=== PATIENT | male | born 1950 | race Caucasian/White ===

== ENCOUNTER 2024-08-07 13:17 | Inpatient (IN) ==
[2024-08-07] MEDS ORDERED: KETAMINE HCL ONE ×2 (13:23)
[2024-08-07] MEDS ORDERED: XYLOCAINE 2 % (PLAIN) ONE (13:23)
[2024-08-07] MEDS ORDERED: PRECEDEX INJ VIAL ONE ×2 (13:23)
[2024-08-07] MEDS ORDERED: ULTANE GAS IN ONE (13:23)
[2024-08-07 15:15] LABS: BASOPHILS # (AUTO) 0.1 X10^3/uL (0.0-0.1); BASOPHILS % (AUTO) 1.7 % (0.2-1.0); EOSINOPHILS # (AUTO) 0.1 x10^3/uL (0.0-0.2); EOSINOPHILS % (AUTO) 2.1 % (0.9-2.9); ERYTHROCYTE SEDIMENTATION RATE 93 MM/HOUR (0-15); HEMATOCRIT 37.9 % (42.0-54.0); HEMOGLOBIN 12.9 g/dL (13.5-18.0); LYMPHOCYTES # (AUTO) 2.1 X10^3/uL (1.3-2.9); LYMPHOCYTES % (AUTO) 33.2 % (21.0-51.0); MEAN CORPUSCULAR HEMOGLOBIN 29.9 pg (27.0-34.0); MEAN CORPUSCULAR HGB CONC 34.2 g/dL (33.0-35.0); MEAN CORPUSCULAR VOLUME 87.6 fL (80.0-100.0); MEAN PLATELET VOLUME 7.5 fL (7.4-11.0); MONOCYTES # (AUTO) 0.4 x10^3/uL (0.3-0.8); MONOCYTES % (AUTO) 6.2 % (0.0-13.0); NEUTROPHILS # (AUTO) 3.6 x10^3/uL (2.2-4.8); NEUTROPHILS % (AUTO) 56.8 % (42.0-75.0); PLATELET COUNT 366 X10^3/uL (150.0-450.0); RED BLOOD COUNT 4.33 X10^6/uL (4.7-6.0); RED CELL DISTRIBUTION WIDTH 14.8 % (11.6-16.5); WHITE BLOOD COUNT 6.4 X10^3/uL (3.6-10.0)
[2024-08-07 15:26] LABS: ALANINE AMINOTRANSFERASE 21 Units/L (12-78); ALBUMIN 3.1 g/dL (3.4-5.0); ALKALINE PHOSPHATASE 146 Units/L (46-116); ASPARTATE AMINO TRANSFERASE 10 Units/L (15-37); BLOOD UREA NITROGEN 13 mg/dL (7-18); CALCIUM 9.2 mg/dL (8.5-10.1); CARBON DIOXIDE 27.8 mmol/L (21-32); CHLORIDE 102 mmol/L (98-107); COR CA(FOR HYPOALB) 9.9 mg/dL (8.5-10.1); CREATININE 1.11 mg/dL (0.70-1.30); GLUCOSE 109 mg/dL (65-99); POTASSIUM 4.4 mmol/L (3.5-5.1); SODIUM 136 mmol/L (136-145); TOTAL PROTEIN 8.4 g/dL (6.4-8.2); eGFR NON BLACK RACES > 60 (>60)
[2024-08-07] MEDS: ULTRAM PO PRN (15:33)
[2024-08-07] MEDS: NEURONTIN CAP 300 MG PO SCH (15:33)
[2024-08-07] MEDS ORDERED: OMNIPAQUE 350 mg/mL 100 mL BTL 100 ML ONE (15:50)
[2024-08-07] MEDS ORDERED: NS 500 ML IV 500 ML IV ONE (15:50)
[2024-08-07] MEDS ORDERED: OMNIPAQUE 350 mg/mL 50 mL BTL 50 ML ONE (15:50)
[2024-08-07] MEDS: LR 1,000 ML IV 1,000 ML IV SCH (16:36)
[2024-08-07 17:44] VITALS: BMI 29.9
--- NOTE | 2024-08-07 19:35 | DR.CONSULT ---
CONSULT Consultation for Day of: Date: 08/07/24 Chief Complaint Chief Complaint: Infected hardware/osteomyelitis of the right foot. Patient has evidence of vascular compromise of arterial structures of the right leg as well. Dr. Matilda granados podiatry is planning removal of infected hardware and placement of a external fixator. Patient will need vascular repeat construction prior to this. Primarily focusing on the occlusion of the posterior tibial artery of the right foot. Patient with history of hypertension and diabetes and gastroesophageal reflux. Allergies Allergies Allergy/AdvReac Type Severity Reaction Status Date / Time No Known Allergies Allergy Verified 08/07/24 14:12 History of Present Illness History of Present Illness: see above Past Medical History Past Medical History: Diabetes, GERD and Hypertension Past Surgical History Surgical History: Other Family History Family Medical History: Diabetes Mellitus and Hypertension Social History Does patient currently use any type of tobacco product: No Alcohol Use: None Drug Use: None Medications Home Medications: No Known Allergies Allergy (Verified 08/07/24 14:12) CONTINUE taking the following medications gabapentin 300 mg capsule 300 mg PO TID 08/07/24 [History] lisinopril 10 mg tablet 10 mg PO QDAY 08/07/24 [History] meloxicam 7.5 mg tablet 7.5 mg PO QDAY arthritis 08/07/24 [History] metformin 500 mg tablet 500 mg PO BID diabetes mellitus 08/07/24 [History] metronidazole 500 mg tablet 500 mg PO Q8H 08/07/24 [History] omeprazole 40 mg capsule,delayed release 40 mg PO QDAY PRN 08/07/24 [History] tamsulosin 0.4 mg capsule 0.4 mg PO QPM 08/07/24 [History] tramadol 50 mg tablet 50 mg PO QID PRN pain 08/07/24 [History] Review of Systems Constitutional: See HPI Eyes: No Symptoms Reported ENT: No Symptoms Reported Respiratory: No Symptoms Reported Cardiovascular: No Symptoms Reported Gastrointestinal: No Symptoms Reported Genitourinary: No Symptoms Reported Musculoskeletal: See HPI Skin: No Symptoms Reported Neurological: No Symptoms Reported Physical Exam Vital Signs: Vital Signs Temperature 97.3 F Temperature 98.1 F Pulse Rate [Right Brachial] 67 Pulse Rate [Right Brachial] 69 Respiratory Rate 18 Respiratory Rate 16 Respiratory Rate 20 Respiratory Rate 16 Blood Pressure [Right Arm] 134/60 Blood Pressure [Right Arm] 137/65 O2 Sat by Pulse Oximetry 96 O2 Sat by Pulse Oximetry 98 Oriented: Normal, Time, Person and Place Eyes: Normal Ear: Normal Nose: Normal Throat: Normal Respiratory: Clear Throughout Cardiovascular: Normal and Other (Palpable femoral pulses bilaterally. I cannot palpate distal ankle pulses either foot) : Normal Auscultation: Bowel Sounds: Normal Palpation: Normal Tenderness: Normal Skin: Normal Musculoskeletal: Right (Right foot with infected hardware, see above) Psychiatric: Normal Affect: Anxious Speech Pattern: Clear and Appropriate Plan (1) Atherosclerosis of [place] arteries of extremities with rest pain, right leg: Status: Acute Plan: Will plan on table arteriogram and possible arterial intervention mainly involving the posterior tibial artery as referenced by the CT angiogram done preoperatively. Risk and benefits discussed with the patient and he agrees to proceed. There is a small risk of limb loss he understands this and agrees to proceed. After this is performed the next day Dr. Moreno will plan removal of the infected hardware and placement of external fixator. (2) Osteomyelitis of right foot: Status: Acute Plan: as above (3) Type 2 diabetes mellitus without complications: Status: Acute (4) Gastro-esophageal reflux disease without esophagitis: Status: Acute (5) Essential (primary) hypertension: Status: Acute
--- NOTE | 2024-08-07 19:58 | CT ---
EXAM: CTA AORTA WITH RUNOFF HISTORY: leg pain, Osteomylitis; COMPARISON: None. TECHNIQUE: Axial CT images of the abdomen, pelvis and lower extremities were obtained prior to and after the administration of 150 mL Omnipaque IV contrast during the arterial phase. Images were reformatted with a 3D angiographic technique for further evaluation. Radiation dose: 1369.30 mGy-cm total DLP FINDINGS: Aorta: No aneurysm. No clinically significant stenosis or occlusion. Mesenteric arteries/Celiac trunk: No clinically significant stenosis, occlusion or aneurysm. Renal arteries: No clinically significant stenosis, occlusion or aneurysm. Right iliac arteries: No clinically significant stenosis, occlusion or aneurysm. Left iliac arteries: No clinically significant stenosis, occlusion or aneurysm. Right femoral arteries/popliteal artery: No clinically significant stenosis, occlusion or aneurysm. Left femoral arteries/popliteal artery: Delayed contrast density in the left superficial femoral artery with no contrast visualized in the popliteal artery. Normal contrast flow is present within the left lower extremity arterial structures on the delayed imaging sequence. No obstruction or clinically significant stenosis identified which would result in the diminished contrast within the left lower extremity arterial structures. Normal bilateral lower extremity runoffs. Lung bases are clear. Stomach and proximal small bowel appear normal. Solid visceral organs of the upper abdomen are unremarkable. Gallbladder appears normal. No biliary dilatation. Homogeneous enhancement of the kidneys without hydronephrosis or hydroureter. No urinary calculus identified. Urinary bladder is unremarkable. Unremarkable appearance of the small and large bowel. No evidence of acute appendicitis. Nonspecific enlargement of the prostate gland. No pneumoperitoneum. No free intra-abdominal fluid. No adenopathy. Diffuse soft tissue edema in the right lower extremity below the knee. Right knee prosthesis in place. Intramedullary day in the distal aspect of the tibia extending into the talus and calcaneus. Chronic appearing comminuted fracture in the distal tibia. IMPRESSION: 1. No acute intra-abdominal abnormality identified. 2. Delayed contrast density in the left superficial femoral artery with no contrast visualized in the popliteal artery. Normal contrast flow is present within the left lower extremity arterial structures on the delayed imaging sequence. No obstruction or clinically significant stenosis identified which would result in the diminished contrast within the left lower extremity arterial structures. 3. Normal bilateral lower extremity runoffs. 4. No acute osseous abnormality identified. Chronic appearing comminuted fracture in the distal tibia. THIS IS AN ELECTRONICALLY VERIFIED FINAL REPORT 08/07/2024 7:55 PM - Electronically signed by Samir Jaime MD
[2024-08-07] MEDS: FLOMAX PO SCH (21:31)
[2024-08-07] MEDS: GLUCOPHAGE XR 24-HR PO SCH (21:31)
[2024-08-07] MEDS ORDERED: STERILE WATER IRRIGATION IR ONE (21:59)
[2024-08-08 05:57] LABS: BASOPHILS % (AUTO) 0.9 % (0.2-1.0); EOSINOPHILS # (AUTO) 0.1 x10^3/uL (0.0-0.2); EOSINOPHILS % (AUTO) 2.6 % (0.9-2.9); HEMATOCRIT 35.9 % (42.0-54.0); HEMOGLOBIN 12.2 g/dL (13.5-18.0); LYMPHOCYTES % (AUTO) 36.8 % (21.0-51.0); MEAN CORPUSCULAR HEMOGLOBIN 29.6 pg (27.0-34.0); MEAN CORPUSCULAR HGB CONC 34.1 g/dL (33.0-35.0); MEAN CORPUSCULAR VOLUME 86.7 fL (80.0-100.0); MEAN PLATELET VOLUME 7.6 fL (7.4-11.0); MONOCYTES # (AUTO) 0.6 x10^3/uL (0.3-0.8); MONOCYTES % (AUTO) 10.6 % (0.0-13.0); NEUTROPHILS # (AUTO) 2.6 x10^3/uL (2.2-4.8); NEUTROPHILS % (AUTO) 49.1 % (42.0-75.0); PLATELET COUNT 326 X10^3/uL (150.0-450.0); RED BLOOD COUNT 4.14 X10^6/uL (4.7-6.0); RED CELL DISTRIBUTION WIDTH 14.7 % (11.6-16.5); WHITE BLOOD COUNT 5.3 X10^3/uL (3.6-10.0)
[2024-08-08] MEDS: NOZIN NASAL SANITIZER TP ONE (06:07)
[2024-08-08 06:08] LABS: ALANINE AMINOTRANSFERASE 19 Units/L (12-78); ALBUMIN 2.7 g/dL (3.4-5.0); ALKALINE PHOSPHATASE 129 Units/L (46-116); ASPARTATE AMINO TRANSFERASE 9 Units/L (15-37); BLOOD UREA NITROGEN 14 mg/dL (7-18); CALCIUM 8.9 mg/dL (8.5-10.1); CHLORIDE 103 mmol/L (98-107); COR CA(FOR HYPOALB) 9.9 mg/dL (8.5-10.1); CREATININE 0.98 mg/dL (0.70-1.30); GLUCOSE 97 mg/dL (65-99); POTASSIUM 4.3 mmol/L (3.5-5.1); SODIUM 136 mmol/L (136-145); TOTAL PROTEIN 7.6 g/dL (6.4-8.2); eGFR NON BLACK RACES > 60 (>60)
[2024-08-08] MEDS: ZESTRIL TAB 10 MG PO SCH (08:28)
[2024-08-08] MEDS: PriLOSEC PO SCH (08:28)
[2024-08-08] MEDS: LR 1,000 ML IV 1,000 ML IV ONE (09:27)
--- NOTE | 2024-08-08 09:30 | EKG ---
Test Reason : pre-op Blood Pressure : */* mmHG Vent. Rate : 59 BPM Atrial Rate : 59 BPM P-R Int : 180 ms QRS Dur : 108 ms QT Int : 462 ms P-R-T Axes : 58 10 19 degrees QTc Int : 457 ms Sinus bradycardia Otherwise normal ECG No previous ECGs available Confirmed by Charlie Cody MD ([id number]) on 08/08/2024 11:17:53 AM Referred By: Confirmed By: Charlie Cody MD
[2024-08-08] MEDS: NS 100 ML IV 100 ML ONE (09:39)
[2024-08-08] MEDS: ANCEF VIAL 1 GRAM ONE (09:39)
[2024-08-08] MEDS: ZOFRAN INJ 4 MG VIAL ONE (09:45)
[2024-08-08] MEDS: FENTANYL VIAL INJ 100 mcg ONE (09:45)
[2024-08-08] MEDS: DECADRON INJ ONE (09:45)
[2024-08-08] MEDS: DIPRIVAN VIAL 20 ML ONE ×3 (09:45→10:54)
[2024-08-08] MEDS: PEPCID 20 MG VIAL ONE (09:45)
[2024-08-08] MEDS: OFIRMEV IV 1000 MG VIAL 1,000 MG/100 ML VIAL IV ONE (09:45)
[2024-08-08] MEDS: VERSED ONE (09:45)
[2024-08-08] MEDS: HEPARIN 1,000 UNIT/500 ML-NS 3,000 UNIT/1,500 ML IV.SOLN ONE (10:09)
[2024-08-08] MEDS: VISIPAQUE 100 ML ONE (10:09)
[2024-08-08] MEDS: MARCAINE 0.5% ONE (10:09)
[2024-08-08] MEDS: VISIPAQUE 50 ML ONE (10:09)
[2024-08-08] MEDS: HEPARIN SODIUM INJ 5000 UNITS ONE ×2 (10:10→11:07)
[2024-08-08] MEDS: NEO-SYNEPHRINE INJ ONE (10:18)
[2024-08-08] MEDS: EPHEDRINE SULFATE INJ ONE (10:18)
--- NOTE | 2024-08-08 11:29 | OR.IMMED ---
IMMEDIATE POST-OP NOTE Immediate Post-Op Note Date of surgery/procedure: 08/08/24 Pre-Op Diagnosis: Critical ischemia right leg, severe stenosis posterior tibial artery on right Post-Op Diagnosis: Same Procedure: Aortogram, arteriogram right leg, angioplasty of the posterior tibial artery at the ankle Description of Procedure: See dictation Surgeon/Letterer: Antoine Marcial MD, FACS Findings: Severe disease of the posterior tibial artery where it makes the curve going around the malleolus of the ankle Estimated Blood Loss: 100 cc Complications: None Progress Notes: to floor, for removal hardware right ankle and placement external fixator tomorrow .
--- NOTE | 2024-08-08 15:01 | DR.CONSULT ---
CONSULT Consultation for Day of: Date: 08/08/24 Chief Complaint Chief Complaint: Infection and Deformity, Right ankle Allergies Allergies Allergy/AdvReac Type Severity Reaction Status Date / Time No Known Allergies Allergy Verified 08/07/24 14:12 History of Present Illness History of Present Illness: This is a 74 year old M who is Diabetic and previously sustained a right ankle fracture. He underwent external fixator application then subsequent fixation using IMN. He developed an infection to this area. This was done some time ago. He was referred to Dr. Grey's office recently with redness and erythema surrounding the anterior ankle on medial side. Patient was instructed to head to the ER and be admitted by Dr. Marcial for infection to the right leg. Aggie was consulted. He took him today and performed an angioplasty of the posterior tibial artery on the right side. He currently denies any nausea, vomiting, fevers, chills, sob. Past Medical History Past Medical History: Diabetes, GERD and Hypertension Past Surgical History Surgical History: Other Family History Family Medical History: Diabetes Mellitus and Hypertension Social History Does patient currently use any type of tobacco product: No Alcohol Use: None Drug Use: None Medications Home Medications: No Known Allergies Allergy (Verified 08/07/24 14:12) CONTINUE taking the following medications gabapentin 300 mg capsule 300 mg PO TID 08/07/24 [History] lisinopril 10 mg tablet 10 mg PO QDAY 08/07/24 [History] meloxicam 7.5 mg tablet 7.5 mg PO QDAY arthritis 08/07/24 [History] metformin 500 mg tablet 500 mg PO BID diabetes mellitus 08/07/24 [History] metronidazole 500 mg tablet 500 mg PO Q8H 08/07/24 [History] omeprazole 40 mg capsule,delayed release 40 mg PO QDAY PRN 08/07/24 [History] tamsulosin 0.4 mg capsule 0.4 mg PO QPM 08/07/24 [History] tramadol 50 mg tablet 50 mg PO QID PRN pain 08/07/24 [History] acetaminophen 500 mg tablet 500 mg PO QID PRN 08/08/24 [History] chlorpheniramine maleate 4 mg tablet (Allergy (chlorpheniramine)) 4 mg PO DAILY PRN 08/08/24 [History] melatonin 5 mg tablet 5 mg PO HS PRN 08/08/24 [History] Review of Systems Constitutional: See HPI Physical Exam Vital Signs: Vital Signs Temperature 97.6 F Temperature 97.6 F Temperature 97.6 F Temperature 97.6 F Temperature 97.6 F Temperature 97.6 F Temperature 97.7 F Temperature 97.6 F Pulse Rate [Right Brachial] 55 Pulse Rate [Right Brachial] 58 Pulse Rate [Right Brachial] 58 Pulse Rate [Right Brachial] 57 Pulse Rate [Right Brachial] 58 Pulse Rate [Right Brachial] 57 Pulse Rate [Right Brachial] 59 Pulse Rate 58 Respiratory Rate 16 Respiratory Rate 16 Respiratory Rate 16 Respiratory Rate 16 Respiratory Rate 16 Respiratory Rate 16 Respiratory Rate 16 Respiratory Rate 18 Respiratory Rate 16 Respiratory Rate 16 Blood Pressure [Right Arm] 130/61 Blood Pressure [Right Arm] 112/66 Blood Pressure [Right Arm] 115/58 Blood Pressure [Right Arm] 116/53 Blood Pressure [Right Arm] 117/56 Blood Pressure [Right Arm] 116/53 Blood Pressure [Right Arm] 118/57 Blood Pressure 131/71 O2 Sat by Pulse Oximetry 99 O2 Sat by Pulse Oximetry 96 O2 Sat by Pulse Oximetry 96 O2 Sat by Pulse Oximetry 94 O2 Sat by Pulse Oximetry 95 O2 Sat by Pulse Oximetry 94 O2 Sat by Pulse Oximetry 95 O2 Sat by Pulse Oximetry 95 Oriented: Normal, Time, Person and Place Palpation: Other (Right: DP and PT pulses are 1/4 palpable. CFT WNL to all digits. ) Tenderness: Other (Right ankle: Tender to the right medial ankle with surrounding erythema and cellulitis overlying the medial ankle. Can feel prominent screw. Feels fluctuance underneath there. ) Musculoskeletal: Right (Severe deformity to the right ankle approximately 10-15 degrees valus with more external rotation than normal. Muscle strength testing deferred. 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 Discussed with patient that now that blood has been re-established we can now produce with limb salvage. - Discussed with patient procedure will consist of hardware removal, debridement of tibia and talus, biopsies, and insertion of antibiotic elluding device, with application of external fixator to the right side. He was understanding. This will be in a staged manner. He was understanding of this that he will require more surgeries down the road. - NPO after midnight. - Currently not on any blood thinners. - Currently has hooker in. Can remove this if okay with Dr. Marcial. Charge to check. - WBC has been stable. VSS. He has not been on any IV antibiotics since admission. - ESR 90 and CRP 30. - To surgery tomorrow for planned procedure above. Consent in chart. (3) Type 2 diabetes mellitus without complications: Status: Acute (4) Gastro-esophageal reflux disease without esophagitis: Status: Acute (5) Essential (primary) hypertension: Status: Acute
[2024-08-09 06:16] LABS: ALANINE AMINOTRANSFERASE 18 Units/L (12-78); ALBUMIN 2.5 g/dL (3.4-5.0); ALKALINE PHOSPHATASE 120 Units/L (46-116); ASPARTATE AMINO TRANSFERASE 7 Units/L (15-37); BLOOD UREA NITROGEN 15 mg/dL (7-18); CARBON DIOXIDE 28.8 mmol/L (21-32); CHLORIDE 105 mmol/L (98-107); COR CA(FOR HYPOALB) 10.2 mg/dL (8.5-10.1); COR NA(FOR HYPERGLY) 139 mmol/L (136-145); CREATININE 0.91 mg/dL (0.70-1.30); GLUCOSE 123 mg/dL (65-99); POTASSIUM 4.7 mmol/L (3.5-5.1); SODIUM 138 mmol/L (136-145); TOTAL PROTEIN 8.5 g/dL (6.4-8.2); eGFR NON BLACK RACES > 60 (>60)
[2024-08-09 06:18] LABS: BASOPHILS % (AUTO) 0.7 % (0.2-1.0); EOSINOPHILS % (AUTO) 0.2 % (0.9-2.9); HEMATOCRIT 34.9 % (42.0-54.0); LYMPHOCYTES # (AUTO) 1.8 X10^3/uL (1.3-2.9); LYMPHOCYTES % (AUTO) 24.1 % (21.0-51.0); MEAN CORPUSCULAR HEMOGLOBIN 29.6 pg (27.0-34.0); MEAN CORPUSCULAR HGB CONC 34.3 g/dL (33.0-35.0); MEAN CORPUSCULAR VOLUME 86.3 fL (80.0-100.0); MONOCYTES # (AUTO) 0.6 x10^3/uL (0.3-0.8); MONOCYTES % (AUTO) 7.6 % (0.0-13.0); NEUTROPHILS # (AUTO) 5.1 x10^3/uL (2.2-4.8); NEUTROPHILS % (AUTO) 67.4 % (42.0-75.0); PLATELET COUNT 286 X10^3/uL (150.0-450.0); RED BLOOD COUNT 4.04 X10^6/uL (4.7-6.0); RED CELL DISTRIBUTION WIDTH 14.4 % (11.6-16.5); WHITE BLOOD COUNT 7.5 X10^3/uL (3.6-10.0)
[2024-08-09] MEDS: HIBICLENS WASH EXT ONE (06:45)
[2024-08-09] MEDS: NS 1,000 ML IV 1,000 ML ONE ×2 (13:27→16:01)
[2024-08-09] MEDS: PEPCID 20 MG VIAL ONE (14:47)
--- NOTE | 2024-08-09 15:39 | DR.OPNOTE ---
OP NOTE Pre-Op Diagnosis: Critical ischemia, osteomyelitis right foot Post-Op Diagnosis: Same, see findings Procedure Date Date Of Procedure: 08/08/24 Procedure: PROCEDURE: Diagnostic aortogram, diagnostic arteriogram right leg, angioplasty right posterior tibial artery NARRATIVE: The patient was taken to the operative suite and placed in the supine position. The left groin and entire right leg were prepped and draped in sterile fashion. Patient was given intravenous sedation supervised by myself. Timeout for the procedure obtained. Ultrasound used to identify the femoral artery in the left groin and the skin overlying it infiltrated with 0.5% Marcaine. Ultrasound used to guide puncture of the left femoral artery and a 0.012 inch guidewire placed. Incision made over the guidewire at the skin edge with a #11 knife blade and the micro sheath placed over the guidewire into the femoral artery. Small wire exchanged for a 0.035 inch a Advantage Glidewire and the micro sheath exchanged for a 5 Cymro vascular sheath. Patient given 5000 units of intravenous heparin. Omni catheter placed over the guidewire into the aorta and power injector used to perform aortogram showing patent aorta and patent iliac arteries with very tortuous right common iliac artery.. The Omni catheter was then used to direct the guidewire down the right common iliac artery to the distal right external iliac artery with some difficulty due to the tortuosity of the common iliac artery the Omni catheter exchanged for a [place] catheter and sequential arteriograms performed of the right leg showing intact superficial femoral and popliteal artery with good runoff with the only exception being the posterior tibial artery where around the medial malleolus which is the area of osteomyelitis and placement of hardware in addition to a day in the femur.. The [place] catheter removed and over the guidewire the 5 [place] sheath was exchanged for a 7 Cymro Catpult Sheath which was parked right superficial femoral artery. [place] catheter and the 0.035 guidewire used to traverse the arteries of the right leg ultimately ending in right posterior tibial artery all the way around the ankle into the foot. [place] catheter used to exchange 0.035 inch wire for a 0.014 inch Thruway wire. At this point over the wire we placed a [employer] coated 2 mm x 150 mm balloon and inflated it for 1 minute. Postprocedure arteriogram showed excellent result with 1 area of narrowing. This was ballooned again with the same balloon. It was minimally improved but there was excellent flow through the posterior tibial artery now .After arterial intervention follow-up arteriogram performed showing excellent outcome. Wires and devices removed from the Catap[place] sheath. This sheath pulled back into the aorta and a 0.035 guidewire placed. [place] sheath exchanged over the wire for a Angio-Seal device used to close the puncture of the left femoral artery. Patient taken to same-day surgery in good condition. Type of Anesthesia: Local (0.5% Marcaine) Anesthesia Comment: Plus MAC Findings: All vessels patent except for the posterior tibial artery where it crosses around the medial malleolus. This is critical to the area of healing. Type of Fluids Used:: Lactated Ringers Total Amount of Fluid Infused:: 500 cc EBL: 100 cc Complications:: none Needle/Sponge Count:: correct Disposition/Condition: Pt. tolerated procedure without difficulty. Taken to the floor in stable condition.
[2024-08-09] MEDS: OFIRMEV IV 1000 MG VIAL 1,000 MG/100 ML VIAL IV ONE (16:10)
[2024-08-09] MEDS: VERSED ONE (16:10)
[2024-08-09] MEDS: ZOFRAN INJ 4 MG VIAL ONE (16:10)
[2024-08-09] MEDS: FENTANYL VIAL INJ 100 mcg ONE (16:10)
[2024-08-09] MEDS: TOBRAMYCIN SULFATE ONE (16:10)
[2024-08-09] MEDS: TORADOL 30 MG VIAL ONE (16:10)
[2024-08-09] MEDS: ANCEF VIAL 1 GRAM ONE (16:10)
[2024-08-09] MEDS: NS 100 ML IV 100 ML ONE (16:10)
[2024-08-09] MEDS: VANCOMYCIN HCL ONE (16:10)
[2024-08-09] MEDS: EPHEDRINE SULFATE INJ ONE (16:25)
[2024-08-09] MEDS: NEO-SYNEPHRINE INJ ONE (16:35)
[2024-08-09] MEDS ORDERED: REGLAN INJ 10 MG VIAL IVP PRN (16:44)
[2024-08-09] MEDS ORDERED: DILAUDID INJ IVP PRN (16:44)
[2024-08-09] MEDS ORDERED: BARHEMSYS INJ IVP PRN (16:44)
[2024-08-09] MEDS ORDERED: ZOFRAN INJ 4 MG VIAL IVP PRN (16:44)
[2024-08-09] MEDS ORDERED: BENADRYL INJ 50 MG VIAL IVP PRN (16:44)
[2024-08-09] MEDS: DILAUDID INJ ONE (17:12)
--- NOTE | 2024-08-09 19:08 | EKG ---
Test Reason : In PACU Blood Pressure : */* mmHG Vent. Rate : 72 BPM Atrial Rate : 72 BPM P-R Int : 140 ms QRS Dur : 94 ms QT Int : 434 ms P-R-T Axes : 11 -11 21 degrees QTc Int : 475 ms Sinus rhythm with occasional premature ventricular complexes and premature atrial complexes Otherwise normal ECG When compared with ECG of 08-AUG-2024 09:11, premature ventricular complexes are now present premature atrial complexes are now present Confirmed by Charlie Cody MD ([id number]) on 08/10/2024 7:28:44 AM Referred By: Confirmed By: Charlie Cody MD
[2024-08-09] MEDS: MARCAINE 0.25% INJ ONE (19:30)
[2024-08-09] MEDS: NORCO 5/325 MG TAB PO PRN (20:12)
[2024-08-10] MEDS ORDERED: NovoLIN R (or HumuLIN R) SUBCUT PRN (04:29)
[2024-08-10 05:13] LABS: BASOPHILS % (AUTO) 0.6 % (0.2-1.0); EOSINOPHILS # (AUTO) 0.1 x10^3/uL (0.0-0.2); EOSINOPHILS % (AUTO) 1.4 % (0.9-2.9); HEMOGLOBIN 11.8 g/dL (13.5-18.0); LYMPHOCYTES # (AUTO) 1.8 X10^3/uL (1.3-2.9); LYMPHOCYTES % (AUTO) 24.5 % (21.0-51.0); MEAN CORPUSCULAR HEMOGLOBIN 29.9 pg (27.0-34.0); MEAN CORPUSCULAR HGB CONC 33.9 g/dL (33.0-35.0); MEAN CORPUSCULAR VOLUME 88.3 fL (80.0-100.0); MEAN PLATELET VOLUME 8.1 fL (7.4-11.0); MONOCYTES # (AUTO) 0.6 x10^3/uL (0.3-0.8); MONOCYTES % (AUTO) 8.5 % (0.0-13.0); NEUTROPHILS # (AUTO) 4.9 x10^3/uL (2.2-4.8); PLATELET COUNT 251 X10^3/uL (150.0-450.0); RED BLOOD COUNT 3.96 X10^6/uL (4.7-6.0); RED CELL DISTRIBUTION WIDTH 14.9 % (11.6-16.5); WHITE BLOOD COUNT 7.5 X10^3/uL (3.6-10.0)
[2024-08-10 05:23] LABS: ALANINE AMINOTRANSFERASE 18 Units/L (12-78); ALBUMIN 2.7 g/dL (3.4-5.0); ALKALINE PHOSPHATASE 127 Units/L (46-116); ASPARTATE AMINO TRANSFERASE 14 Units/L (15-37); BLOOD UREA NITROGEN 13 mg/dL (7-18); CALCIUM 8.3 mg/dL (8.5-10.1); CARBON DIOXIDE 27.2 mmol/L (21-32); CHLORIDE 104 mmol/L (98-107); COR CA(FOR HYPOALB) 9.3 mg/dL (8.5-10.1); CREATININE 0.98 mg/dL (0.70-1.30); GLUCOSE 90 mg/dL (65-99); MAGNESIUM 1.9 mg/dL (2.0-2.9); POTASSIUM 4.2 mmol/L (3.5-5.1); SODIUM 140 mmol/L (136-145); TOTAL PROTEIN 8.5 g/dL (6.4-8.2); eGFR NON BLACK RACES > 60 (>60)
[2024-08-10] MEDS: MORPHINE SULFATE INJ 2 MG INJ IVP PRN (08:01)
--- NOTE | 2024-08-10 08:01 | NOTE.SOAP ---
Soap Note Note for Day of Date of Exam: 08/09/24 Subjective Data Subjective Data: Status post revascularization of the right leg. Plan for removal of infected hardware and placement of external fixator today by senior health consultant Objective Data Temperature: 98.1 F Pulse Rate: 67 Respiratory Rate: 26 Blood Pressure: 136/62 O2 Sat by Pulse Oximetry: 94 Objective Data: Patient's leg not examined today. Patient on the way to the operating room Assessment Assessment: Status post revascularization of the right leg with angioplasty of the posterior tibial artery. Plan Plan: For removal infected hardware and placement of external fixator today, will observe
--- NOTE | 2024-08-10 08:07 | EKG ---
Test Reason : ekg changes intraoperative Blood Pressure : */* mmHG Vent. Rate : 77 BPM Atrial Rate : 77 BPM P-R Int : 168 ms QRS Dur : 100 ms QT Int : 388 ms P-R-T Axes : 69 -22 17 degrees QTc Int : 439 ms Sinus rhythm with premature atrial complexes Otherwise normal ECG When compared with ECG of 09-AUG-2024 18:48, premature ventricular complexes are no longer present Confirmed by Mauro Meraz ([id number]) on 08/10/2024 8:01:21 AM Referred By: Confirmed By: Mauro Meraz
--- NOTE | 2024-08-10 09:44 | NOTE.SOAP ---
Soap Note Note for Day of Date of Exam: 08/10/24 Subjective Data Subjective Data: POD#1 hardware removal, osteotomy tibia and talus, insertion of antibiotic elluding device, application of external fixator, right. Denies any nausea, vomiting, fevers, chills, sob. Nursing said he had no episodes of arrythmia through night. Cardiology has not seen him yet. [place]ita is aware as well. Objective Data Objective Data: Right Lower Extremity Exam: Dressing taken down. No drainage from any of the incisions, no hematoma noted. External fixator in place and stable with no signs of loosening. Redressed with 4x4s, ABD, Wilma, FRANSISCA. No signs or symptoms concerning for DVT or PE. Assessment Assessment: 74 year old M POD#1 HWR, Osteotomy tibia and talus, insertion of antibiotic elluding device, application of external fixator, right Plan Plan: - Can wb for transfers only on RLE. - Cultures show rare GPCs currently. Awaiting final results. - Pathology report not back yet. - Cardiology has not seen yet but he has had no episodes of arrythmia through night. - Currently not on any antibiotics. WBC is stable. - Going to start Zosyn q8. - Cannot be discharged home yet. - May require another washout and exchange of antibiotic spacer with modification of external fixator. This would be done Wednesday. - No DVT Px on board. Would recommend 40mg Lovenox daily. - Dr. Canas is aware.
[2024-08-10] MEDS: NS 250 ML IV 250 ML IV ONE (09:51)
[2024-08-10] MEDS: MAGNESIUM SULFATE 1 GRAM/100 mL PREMIX 1 G/100 ML BAG IV SCH (09:52)
[2024-08-10] MEDS: ZOSYN VIAL 3.375 GRAMS 3.375 G in NS 100 ML IV 100 ML IV SCH (11:57)
[2024-08-10] MEDS: NS 250 ML IV 25 ML IV PRN (12:15)
--- NOTE | 2024-08-10 13:22 | NOTE.SOAP ---
Soap Note Note for Day of Date of Exam: 08/10/24 Subjective Data Subjective Data: Status post revascularization of the right leg 2 days ago. Status post removal of hardware and placement of external fixator yesterday. Podiatry is planning return to the OR next Wednesday to wash the leg out again. Otherwise doing well and is stable Objective Data Temperature: 98.7 F Pulse Rate: 67 Respiratory Rate: 26 Blood Pressure: 136/62 O2 Sat by Pulse Oximetry: 94 Objective Data: Right leg in external fixator. Hemoglobin is 11.8. White blood cell count 7500. Basic metabolic profile within normal limits Assessment Assessment: Status post revascularization of the right leg. Doing well. I will sign off for now. Will make sure he has begun on Xarelto. Plan Plan: Patient will need follow-up in my office after discharge
--- NOTE | 2024-08-10 13:49 | DR.CONSULT ---
CONSULT Consultation for Day of: Date: 08/10/24 Chief Complaint Chief Complaint: NSVT- 10 beat in OR Allergies Allergies Allergy/AdvReac Type Severity Reaction Status Date / Time No Known Allergies Allergy Verified 08/07/24 14:12 History of Present Illness History of Present Illness: 74 yo male w/o known cad- has had issues with r ankle break/infection darnell on one year- had pci to R tibial artery/then ankle surgery- on or: 10 beat run of vt- last year- pt cant do much due to ankle but no cp/sob/palp/syncope- has htn/dm- no statin- now w PVD Past Medical History Past Medical History: Diabetes, GERD and Hypertension Past Surgical History Surgical History: Other Family History Family Medical History: Diabetes Mellitus and Hypertension Social History Does patient currently use any type of tobacco product: No Alcohol Use: None Drug Use: None Medications Home Medications: No Known Allergies Allergy (Verified 08/07/24 14:12) CONTINUE taking the following medications gabapentin 300 mg capsule 300 mg PO TID 08/07/24 [History] lisinopril 10 mg tablet 10 mg PO QDAY 08/07/24 [History] meloxicam 7.5 mg tablet 7.5 mg PO QDAY arthritis 08/07/24 [History] metformin 500 mg tablet 500 mg PO BID diabetes mellitus 08/07/24 [History] metronidazole 500 mg tablet 500 mg PO Q8H 08/07/24 [History] omeprazole 40 mg capsule,delayed release 40 mg PO QDAY PRN 08/07/24 [History] tamsulosin 0.4 mg capsule 0.4 mg PO QPM 08/07/24 [History] tramadol 50 mg tablet 50 mg PO QID PRN pain 08/07/24 [History] acetaminophen 500 mg tablet 500 mg PO QID PRN 08/08/24 [History] chlorpheniramine maleate 4 mg tablet (Allergy (chlorpheniramine)) 4 mg PO DAILY PRN 08/08/24 [History] melatonin 5 mg tablet 5 mg PO HS PRN 08/08/24 [History] Physical Exam Vital Signs: Vital Signs Temperature 98.7 F Temperature 98.1 F Temperature 98.7 F Pulse Rate [Right Brachial] 67 Pulse Rate 67 Pulse Rate 67 Respiratory Rate 26 Respiratory Rate 21 Respiratory Rate 17 Respiratory Rate 20 Respiratory Rate 24 Respiratory Rate 26 Respiratory Rate 24 Respiratory Rate 23 Blood Pressure [Right Arm] 152/70 Blood Pressure 136/62 Blood Pressure 136/62 O2 Sat by Pulse Oximetry 94 O2 Sat by Pulse Oximetry 94 O2 Sat by Pulse Oximetry 96 alert ox3 nad no bruits claer lungs rrr r ankle in permanent stabilizer labs: wbc 7.5 hct 35 cr 0.98 trop x 2 after surgery: negative- pending tsh/lipids ekg: nsr pacs/pvcs ( tele too) echo: mildly dialted lv but preserved EF Plan (1) Atherosclerosis of [place] arteries of extremities with rest pain, right leg: Status: Acute (2) Osteomyelitis of right foot: Status: Acute (3) Type 2 diabetes mellitus without complications: Status: Acute (4) Essential (primary) hypertension: Status: Acute (5) Ventricular tachycardia: Status: Acute Narrative Support Text: check tsh/add low dose bb. check lipids too
[2024-08-10] MEDS: TOPROL XL PO SCH (14:21)
[2024-08-10] MEDS ORDERED: TYLENOL 325 MG TAB PO PRN (15:19)
[2024-08-10] MEDS: MOTRIN TAB 800 MG PO PRN (15:38)
[2024-08-10] MEDS: SNACK - Diabetic Appropriate PO SCH (19:25)
[2024-08-10] MEDS: ZOSYN VIAL 4.5 GRAMS 4.5 G in NS 100 ML IV 100 ML IV SCH (21:30)
[2024-08-10] MEDS: XARELTO PO SCH (21:33)
[2024-08-11 05:47] LABS: BASOPHILS # (AUTO) 0.1 X10^3/uL (0.0-0.1); BASOPHILS % (AUTO) 0.8 % (0.2-1.0); EOSINOPHILS # (AUTO) 0.2 x10^3/uL (0.0-0.2); EOSINOPHILS % (AUTO) 2.3 % (0.9-2.9); HEMATOCRIT 33.1 % (42.0-54.0); HEMOGLOBIN 11.2 g/dL (13.5-18.0); LYMPHOCYTES # (AUTO) 1.9 X10^3/uL (1.3-2.9); LYMPHOCYTES % (AUTO) 25.7 % (21.0-51.0); MEAN CORPUSCULAR HEMOGLOBIN 29.9 pg (27.0-34.0); MEAN CORPUSCULAR VOLUME 87.9 fL (80.0-100.0); MEAN PLATELET VOLUME 7.9 fL (7.4-11.0); MONOCYTES # (AUTO) 0.8 x10^3/uL (0.3-0.8); NEUTROPHILS # (AUTO) 4.4 x10^3/uL (2.2-4.8); NEUTROPHILS % (AUTO) 60.2 % (42.0-75.0); PLATELET COUNT 220 X10^3/uL (150.0-450.0); RED BLOOD COUNT 3.76 X10^6/uL (4.7-6.0); RED CELL DISTRIBUTION WIDTH 14.6 % (11.6-16.5); WHITE BLOOD COUNT 7.4 X10^3/uL (3.6-10.0)
[2024-08-11 06:06] LABS: ALANINE AMINOTRANSFERASE 13 Units/L (12-78); ALBUMIN 2.3 g/dL (3.4-5.0); ALKALINE PHOSPHATASE 113 Units/L (46-116); ASPARTATE AMINO TRANSFERASE 6 Units/L (15-37); BLOOD UREA NITROGEN 13 mg/dL (7-18); CALCIUM 8.6 mg/dL (8.5-10.1); CHLORIDE 105 mmol/L (98-107); CHOL/HDL RATIO 2.5 (0.0-5.0); CHOLESTEROL 124 mg/dL (0-200); COR NA(FOR HYPERGLY) 139 mmol/L (136-145); CREATININE 1.01 mg/dL (0.70-1.30); GLUCOSE 121 mg/dL (65-99); HDL CHOLESTEROL 49 mg/dL (40-60); POTASSIUM 4.3 mmol/L (3.5-5.1); SODIUM 138 mmol/L (136-145); TOTAL PROTEIN 7.7 g/dL (6.4-8.2); TRIGLYCERIDES 47 mg/dL (0-150); TSH (3RD GENERATION) 1.757 uIU/mL (0.358-3.74); eGFR NON BLACK RACES > 60 (>60)
[2024-08-11] MEDS: ASPIRIN EC 81 MG PO SCH (08:21)
[2024-08-11] MEDS: COLACE CAP 100 MG PO PRN (09:38)
[2024-08-11] MEDS: NORCO 7.5/325 MG TAB PO PRN (15:14)
[2024-08-12 06:35] LABS: BASOPHILS % (AUTO) 0.4 % (0.2-1.0); EOSINOPHILS # (AUTO) 0.2 x10^3/uL (0.0-0.2); EOSINOPHILS % (AUTO) 2.7 % (0.9-2.9); HEMATOCRIT 32.3 % (42.0-54.0); HEMOGLOBIN 11.1 g/dL (13.5-18.0); LYMPHOCYTES # (AUTO) 1.8 X10^3/uL (1.3-2.9); LYMPHOCYTES % (AUTO) 21.1 % (21.0-51.0); MEAN CORPUSCULAR HEMOGLOBIN 29.9 pg (27.0-34.0); MEAN CORPUSCULAR HGB CONC 34.3 g/dL (33.0-35.0); MEAN CORPUSCULAR VOLUME 87.1 fL (80.0-100.0); MEAN PLATELET VOLUME 8.3 fL (7.4-11.0); MONOCYTES # (AUTO) 0.8 x10^3/uL (0.3-0.8); MONOCYTES % (AUTO) 9.2 % (0.0-13.0); NEUTROPHILS # (AUTO) 5.6 x10^3/uL (2.2-4.8); NEUTROPHILS % (AUTO) 66.6 % (42.0-75.0); PLATELET COUNT 209 X10^3/uL (150.0-450.0); RED BLOOD COUNT 3.71 X10^6/uL (4.7-6.0); RED CELL DISTRIBUTION WIDTH 14.4 % (11.6-16.5); WHITE BLOOD COUNT 8.4 X10^3/uL (3.6-10.0)
[2024-08-12 06:41] LABS: ALANINE AMINOTRANSFERASE 13 Units/L (12-78); ALBUMIN 2.2 g/dL (3.4-5.0); ALKALINE PHOSPHATASE 107 Units/L (46-116); ASPARTATE AMINO TRANSFERASE 7 Units/L (15-37); BLOOD UREA NITROGEN 11 mg/dL (7-18); CALCIUM 8.5 mg/dL (8.5-10.1); CARBON DIOXIDE 24.7 mmol/L (21-32); CHLORIDE 102 mmol/L (98-107); COR CA(FOR HYPOALB) 9.9 mg/dL (8.5-10.1); COR NA(FOR HYPERGLY) 136 mmol/L (136-145); CREATININE 0.94 mg/dL (0.70-1.30); GLUCOSE 124 mg/dL (65-99); POTASSIUM 4.2 mmol/L (3.5-5.1); SODIUM 135 mmol/L (136-145); TOTAL PROTEIN 6.8 g/dL (6.4-8.2); eGFR NON BLACK RACES > 60 (>60)
[2024-08-12 12:57] VITALS: BP 119/69; PULSE 66; TEMP 98.2; O2SAT 96
[2024-08-12 13:35] VITALS: RESP 18
--- NOTE | 2024-08-12 17:14 | PCM.DCPLAN ---
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, right leg: Status: Acute (2) Osteomyelitis of right foot: Status: Acute (3) Type 2 diabetes mellitus without complications: Status: Acute (4) Essential (primary) hypertension: Status: Acute (5) Ventricular tachycardia: Status: Acute Discharge Medications Discharge Medications: Home Medication List gabapentin 300 mg capsule 300 mg PO TID 08/07/24 [History] lisinopril 10 mg tablet 10 mg PO QDAY 08/07/24 [History] meloxicam 7.5 mg tablet 7.5 mg PO QDAY arthritis 08/07/24 [History] metformin 500 mg tablet 500 mg PO BID diabetes mellitus 08/07/24 [History] metronidazole 500 mg tablet 500 mg PO Q8H 08/07/24 [History] omeprazole 40 mg capsule,delayed release 40 mg PO QDAY PRN 08/07/24 [History] tamsulosin 0.4 mg capsule 0.4 mg PO QPM 08/07/24 [History] tramadol 50 mg tablet 50 mg PO QID PRN pain 08/07/24 [History] acetaminophen 500 mg tablet 500 mg PO QID PRN 08/08/24 [History] chlorpheniramine maleate 4 mg tablet (Allergy (chlorpheniramine)) 4 mg PO DAILY PRN 08/08/24 [History] melatonin 5 mg tablet 5 mg PO HS PRN 08/08/24 [History] Prescriptions: Hospital Course Vital Signs: Vital Signs Temperature 98.6 F Pulse Rate [Right Brachial] 103 Respiratory Rate 20 Respiratory Rate 20 Respiratory Rate 20 Respiratory Rate 16 Respiratory Rate 16 Blood Pressure [Right Arm] 129/72 O2 Sat by Pulse Oximetry 94 Latest Lab Results: Laboratory Last Values WBC 8.4 X10^3/uL (3.6-10.0) 08/12/24 05:41 RBC 3.71 X10^6/uL (4.7-6.0) L 08/12/24 05:41 Hgb 11.1 g/dL (13.5-18.0) L 08/12/24 05:41 Hct 32.3 % (42.0-54.0) L 08/12/24 05:41 MCV 87.1 fL (80.0-100.0) 08/12/24 05:41 MCH 29.9 pg (27.0-34.0) 08/12/24 05:41 MCHC 34.3 g/dL (33.0-35.0) 08/12/24 05:41 RDW 14.4 % (11.6-16.5) 08/12/24 05:41 Plt Count 209 X10^3/uL (150.0-450.0) 08/12/24 05:41 MPV 8.3 fL (7.4-11.0) 08/12/24 05:41 Neut % (Auto) 66.6 % (42.0-75.0) 08/12/24 05:41 Lymph % (Auto) 21.1 % (21.0-51.0) 08/12/24 05:41 Trinity % (Auto) 9.2 % (0.0-13.0) 08/12/24 05:41 Eos % (Auto) 2.7 % (0.9-2.9) 08/12/24 05:41 Baso % (Auto) 0.4 % (0.2-1.0) 08/12/24 05:41 Neut # (Auto) 5.6 x10^3/uL (2.2-4.8) H 08/12/24 05:41 Lymph # (Auto) 1.8 X10^3/uL (1.3-2.9) 08/12/24 05:41 Trinity # (Auto) 0.8 x10^3/uL (0.3-0.8) 08/12/24 05:41 Eos # (Auto) 0.2 x10^3/uL (0.0-0.2) 08/12/24 05:41 Baso # (Auto) 0.0 X10^3/uL (0.0-0.1) 08/12/24 05:41 Absolute Nucleated RBC 0.0 /100WBC 08/12/24 05:41 ESR 93 MM/HOUR (0-15) H 08/07/24 15:02 Sodium 135 mmol/L (136-145) L 08/12/24 05:41 Corrected Sodium 136 mmol/L (136-145) 08/12/24 05:41 Potassium 4.2 mmol/L (3.5-5.1) 08/12/24 05:41 Chloride 102 mmol/L (98-107) 08/12/24 05:41 Carbon Dioxide 24.7 mmol/L (21-32) 08/12/24 05:41 BUN 11 mg/dL (7-18) 08/12/24 05:41 Creatinine 0.94 mg/dL (0.70-1.30) 08/12/24 05:41 Est GFR (MDRD) Af Amer > 60 (>60) 08/12/24 05:41 Est GFR (MDRD) Non-Af > 60 (>60) 08/12/24 05:41 Glucose 124 mg/dL (65-99) H 08/12/24 05:41 POC Glucose (mg/dL) 103 mg/dL (65-99) H 08/12/24 11:27 Calcium 8.5 mg/dL (8.5-10.1) 08/12/24 05:41 Corrected Calcium 9.9 mg/dL (8.5-10.1) 08/12/24 05:41 Magnesium 1.9 mg/dL (2.0-2.9) L 08/10/24 04:30 Total Bilirubin 0.40 mg/dL (0.2-1.0) 08/12/24 05:41 AST 7 Units/L (15-37) L 08/12/24 05:41 ALT 13 Units/L (12-78) 08/12/24 05:41 Alkaline Phosphatase 107 Units/L (46-116) 08/12/24 05:41 Creatine Kinase 49 Units/L (39-308) 08/09/24 20:12 Troponin I High Sens 38.9 ng/L (4.0-60.0) 08/10/24 07:50 C-Reactive Protein 30.20 mg/L (0-3.0) H 08/07/24 15:02 Total Protein 6.8 g/dL (6.4-8.2) 08/12/24 05:41 Albumin 2.2 g/dL (3.4-5.0) L 08/12/24 05:41 Globulin 4.6 g/dL (2.5-4.5) H 08/12/24 05:41 Albumin/Globulin Ratio 0.5 Ratio (1.1-2.1) L 08/12/24 05:41 Triglycerides 47 mg/dL (0-150) 08/11/24 05:25 Cholesterol 124 mg/dL (0-200) 08/11/24 05:25 LDL Cholesterol, Calc 66 mg/dL (0-100) 08/11/24 05:25 HDL Cholesterol 49 mg/dL (40-60) 08/11/24 05:25 Cholesterol/HDL Ratio 2.5 (0.0-5.0) 08/11/24 05:25 TSH 3rd Generation 1.757 uIU/mL (0.358-3.74) 08/11/24 05:25 Hospital Course: Patient admitted due to concern about vascular ischemia and IM nail infection of the right lower extremity. He did go to through surgery with vascular to have a PCI to the right lower extremity that was successful. Then underwent IM nail removal and external fixator placement with podiatry. There was concern about nonsustained V. tach and cardiology was consulted. Recommended beta-jeffrey and cardiac risk factor modifications. He was continued on IV antibiotics due to history of Pseudomonas infection. All cultures have been negative to date and patient has remained stable through his surgeries. Podiatry has cleared him for discharge today with plans for outpatient follow-up and further procedures due to his nonhealing RLE fracture. Also needs to follow-up with cardiology, vascular surgery, and PCP in the next 2 weeks. Discharged home in stable, improved condition with restrictions per podiatry about weightbearing with RLE. He does have home health services established.
== END 2024-08-12 13:45 | disposition home health service (06) | DRG 253 ==
LOC: MED/SURG → ICU → MED/SURG 08-10 14:00
PROVIDERS: ADMIT Obstetrics & Gynecology Obstetrics; ATTEND Obstetrics & Gynecology Obstetrics
PROC: DEBRIDE (2024-08-09 16:45)

== ENCOUNTER 2024-10-18 12:40 | Observation (INO) ==
[2024-10-18] MEDS: NS 1,000 ML IV 1,000 ML ONE (11:56)
[~2024-10-18 12:40] MED LIST: KETAMINE HCL ONE; NS IRRIGATION* 500 ML IR ONE; ULTANE GAS IN ONE; XYLOCAINE 2 % (PLAIN) ONE
[2024-10-18 12:49] VITALS: BMI 30.4
[2024-10-18] MEDS: DIPRIVAN VIAL 20 ML ONE (13:26)
[2024-10-18] MEDS: BRIDION ONE (13:26)
[2024-10-18] MEDS: DECADRON INJ ONE ×2 (13:26→13:44)
[2024-10-18] MEDS: PRECEDEX INJ VIAL ONE (13:26)
[2024-10-18] MEDS: REGLAN INJ 10 MG VIAL ONE (13:26)
[2024-10-18] MEDS: ZEMURON 100 MG VIAL ONE (13:26)
[2024-10-18] MEDS: TORADOL 30 MG VIAL ONE (13:26)
[2024-10-18] MEDS: OFIRMEV IV 1000 MG VIAL 1,000 MG/100 ML VIAL IV ONE (13:26)
[2024-10-18] MEDS: FENTANYL VIAL INJ 100 mcg ONE (13:26)
[2024-10-18] MEDS: ZOFRAN INJ 4 MG VIAL ONE (13:26)
[2024-10-18] MEDS: VERSED ONE (13:26)
[2024-10-18] MEDS: PEPCID 20 MG VIAL ONE (13:30)
[2024-10-18] MEDS: NS IV PRN (13:45)
[2024-10-18] MEDS: REGLAN INJ 10 MG VIAL IVP PRN (13:46)
[2024-10-18] MEDS: PEPCID 20 MG VIAL IVP PRN (13:46)
[2024-10-18] MEDS: ZOFRAN INJ 4 MG VIAL IVP PRN (13:46)
[2024-10-18] MEDS: VERSED IVP PRN (13:46)
[2024-10-18] MEDS ORDERED: REGLAN INJ 10 MG VIAL IVP PRN (13:54)
[2024-10-18] MEDS ORDERED: BARHEMSYS INJ IVP PRN (13:54)
[2024-10-18] MEDS ORDERED: ZOFRAN INJ 4 MG VIAL IVP PRN ×2 (13:54→16:59)
[2024-10-18] MEDS ORDERED: BENADRYL INJ 50 MG VIAL IVP PRN (13:54)
[2024-10-18] MEDS ORDERED: DILAUDID INJ IVP PRN ×2 (13:54→17:06)
[2024-10-18] MEDS: ANCEF VIAL 1 GRAM IV PRN (13:55)
[2024-10-18] MEDS: ANCEF VIAL 1 GRAM ONE (13:58)
[2024-10-18] MEDS: NS 100 ML IV 100 ML ONE (13:58)
[2024-10-18] MEDS: XYLOCAINE 2 % (PLAIN) INJ PRN (14:05)
[2024-10-18] MEDS: DIPRIVAN VIAL 150 ML IVP PRN (14:05)
[2024-10-18] MEDS: FENTANYL VIAL INJ 100 mcg IVP PRN (14:05)
[2024-10-18] MEDS: KETAMINE HCL IV PRN (14:05)
[2024-10-18] MEDS: DECADRON INJ IVP PRN (14:09)
[2024-10-18] MEDS: EPHEDRINE SULFATE INJ ONE (14:17)
[2024-10-18] MEDS: EPHEDRINE SULFATE INJ IVP PRN (14:18)
[2024-10-18] MEDS: VASOSTRICT INJ 20 UNITS VIAL ONE (14:20)
[2024-10-18] MEDS: MARCAINE 0.25% INJ ONE (14:28)
[2024-10-18] MEDS: OFIRMEV IV 1000 MG VIAL 1,000 MG/100 ML VIAL IV PRN (14:36)
[2024-10-18] MEDS: NORVASC TAB 10 MG PO PRN (14:41)
[2024-10-18] MEDS: TORADOL 30 MG VIAL IVP PRN (14:51)
[2024-10-18] MEDS: ZEMURON 100 MG VIAL IVP PRN (15:09)
[2024-10-18] MEDS: DANTRIUM IV PRN (15:20)
[2024-10-18] MEDS: DILAUDID INJ ONE (15:45)
[2024-10-18] MEDS: BRIDION IVP PRN (16:21)
[2024-10-18] MEDS: PRECEDEX INJ VIAL IVP PRN (16:27)
[2024-10-18] MEDS: NEO-SYNEPHRINE INJ IVP PRN (16:36)
[2024-10-18] MEDS: DILAUDID INJ IVP PRN (16:47)
[2024-10-18] MEDS: COLACE CAP 100 MG PO SCH (20:39)
[2024-10-18] MEDS: PERCOCET TAB 5/325 MG PO PRN (22:33)
[2024-10-19 03:57] VITALS: TEMP 97.9
[2024-10-19 06:14] VITALS: RESP 19
[2024-10-19 06:19] LABS: COR NA(FOR HYPERGLY) 139 mmol/L (136-145); CREATININE 0.99 mg/dL (0.70-1.30); eGFR NON BLACK RACES > 60 (>60)
[2024-10-19] MEDS: NS 1,000 ML IV 1,000 ML ONE (07:08)
[2024-10-19 07:51] VITALS: BP 139/65; PULSE 70; O2SAT 95
--- NOTE | 2024-10-19 08:20 | NOTE.SOAP ---
Soap Note Note for Day of Date of Exam: 10/19/24 Subjective Data Subjective Data: Patient was seen at bedside resting comfortably. Patient states his pain has been well controlled with oral Percocet and has not required any IV pain medication. patient states he did experience some strikethrough on his bandages overnight but no other acute events. Objective Data Objective Data: Patient is POD #1 hindfoot fusion, RLE. Surgical dressings were noted to be saturated to the lateral aspect of the right lower extremity. Once removed, xeroform remained over surgical incision sites but each site was examined. No signs of active bleeding were appreciated. No hematoma was present. No tenderness to palpation. Edema present is consistent with post operative course. All incision sites are noted to have sutures intact with no ischemic signs present, no gapping and no signs of infection. CFT < 3 sec to digits of the right foot. ROM noted to digits of the right foot. 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 Plan Plan: Patient is ok to be discharged home from a podiatric standpoint Patient is to remain NWB to RLE Patient has all appropriate DME Percocet prescription is in patient's chart Patient told to start Xarelto today, he has a prescription that was filled last week and states he does not need another one Patient told to keep dressing clean, dry and intact to the RLE- he will follow up outpatient with Dr. Grey for postoperative management
[2024-10-19] MEDS: NEURONTIN CAP 300 MG PO SCH (09:33)
[2024-10-19] MEDS: GLUCOPHAGE PO SCH (09:34)
[2024-10-19] MEDS: GLUCOPHAGE ONE (09:34)
[2024-10-19] MEDS: ZESTRIL TAB 10 MG PO SCH (09:38)
[2024-10-19] MEDS ORDERED: FLOMAX PO SCH (21:00)
[2024-10-20] MEDS ORDERED: LOVENOX INJ 40 MG SYR SC SCH (09:00)
== END 2024-10-19 10:45 | disposition home or self-care (01) ==
LOC: OBS → MED/SURG 17:18
PROVIDERS: ADMIT Obstetrics & Gynecology Obstetrics; ATTEND Obstetrics & Gynecology Obstetrics

== ENCOUNTER 2024-12-13 10:40 | Observation (INO) ==
[2024-12-13] MEDS: VERSED ONE (09:50)
[2024-12-13] MEDS: FENTANYL VIAL INJ 100 mcg ONE (09:51)
[2024-12-13] MEDS: OFIRMEV IV 1000 MG VIAL 1,000 MG/100 ML VIAL IV ONE (09:52)
[2024-12-13] MEDS: DIPRIVAN VIAL 20 ML ONE (09:52)
[2024-12-13] MEDS: DECADRON INJ ONE ×2 (09:54→11:42)
[2024-12-13] MEDS: REGLAN INJ 10 MG VIAL ONE (10:17)
[2024-12-13] MEDS: ZOFRAN INJ 4 MG VIAL ONE (10:17)
[2024-12-13] MEDS: PEPCID 20 MG VIAL ONE (10:22)
[2024-12-13 10:27] VITALS: BMI 31.9
[2024-12-13] MEDS: NS 1,000 ML IV 1,000 ML ONE (10:31)
[~2024-12-13 10:40] MED LIST changes: +BARHEMSYS INJ IVP PRN; +BENADRYL INJ 50 MG VIAL IVP PRN; +DILAUDID INJ IVP PRN; -NS IRRIGATION* 500 ML IR ONE; +ZOFRAN INJ 4 MG VIAL IVP PRN
[2024-12-13] MEDS: NS 1,000 ML IV 800 ML IV PRN (10:45)
[2024-12-13] MEDS: VERSED IVP PRN (10:50)
[2024-12-13] MEDS: ZOFRAN INJ 4 MG VIAL IVP PRN (10:51)
[2024-12-13] MEDS: PEPCID 20 MG VIAL IVP PRN (10:52)
[2024-12-13] MEDS: REGLAN INJ 10 MG VIAL IVP PRN (10:54)
[2024-12-13] MEDS ORDERED: XYLOCAINE 2 % (PLAIN) PRN (11:08)
[2024-12-13] MEDS ORDERED: TYLENOL 325 MG TAB PO PRN (11:08)
[2024-12-13] MEDS: DIPRIVAN VIAL 200 ML IVP PRN (11:14)
[2024-12-13] MEDS: FENTANYL VIAL INJ 100 mcg IVP PRN (11:17)
[2024-12-13] MEDS: ROBINUL ONE (11:20)
[2024-12-13] MEDS: OFIRMEV IV 1000 MG VIAL 1,000 MG/100 ML VIAL IV PRN (11:20)
[2024-12-13] MEDS: EPHEDRINE SULFATE INJ ONE (11:22)
[2024-12-13] MEDS: MARCAINE 0.5% ONE (11:25)
[2024-12-13] MEDS: ROBINUL IVP PRN (11:25)
[2024-12-13] MEDS: NEO-SYNEPHRINE INJ ONE (11:27)
[2024-12-13] MEDS: KETAMINE HCL IVP PRN (11:38)
[2024-12-13] MEDS: DECADRON INJ IVP PRN (11:44)
[2024-12-13] MEDS: EPHEDRINE SULFATE INJ IVP PRN (11:50)
[2024-12-13] MEDS: NEO-SYNEPHRINE INJ IVP PRN (11:50)
[2024-12-13] MEDS: HYDROGEN PEROXIDE 3% ONE (12:12)
[2024-12-13] MEDS: MORPHINE SULFATE INJ 10 MG IVP PRN (12:29)
[2024-12-13] MEDS: NS 1,000 ML IV 1,000 ML IV SCH (13:53)
[2024-12-13] MEDS: VANCOMYCIN IV *PREMIX 1 G/200 ML BAG 1 G/200 ML PIGGYBACK IV SCH (18:56)
[2024-12-13] MEDS: ANCEF VIAL 1 GRAM IVP SCH (18:56)
[2024-12-13] MEDS: COLACE CAP 100 MG PO SCH (20:46)
[2024-12-13] MEDS: PERCOCET TAB 5/325 MG PO PRN (20:47)
[2024-12-13] MEDS: MERREM VIAL 1 G in NS 100 ML IV 100 ML IV SCH (21:14)
[2024-12-13] MEDS ORDERED: ANCEF VIAL 1 GRAM IVP SCH (22:00)
[2024-12-13] MEDS ORDERED: VANCOMYCIN IV *PREMIX 1 G/200 ML BAG 1 G/200 ML PIGGYBACK IV SCH (22:00)
[2024-12-14] MEDS: ZOFRAN INJ 4 MG VIAL IVP PRN (02:58)
[2024-12-14 04:58] LABS: COR NA(FOR HYPERGLY) 139 mmol/L (136-145); CREATININE 1.15 mg/dL (0.70-1.30); eGFR NON BLACK RACES > 60 (>60)
[2024-12-14] MEDS ORDERED: PHARMACY CONSULT - MEROPENEM XX SCH (07:00)
[2024-12-14] MEDS: MORPHINE SULFATE INJ 10 MG ONE (08:24)
[2024-12-14] MEDS: XARELTO PO SCH (09:07)
[2024-12-14 09:21] VITALS: RESP 18
--- NOTE | 2024-12-14 09:38 | MD.NOTE ---
Provider Note Note Note: Patient was seen and examined at bedside. Patient is POD#1 brevis flap transfer closure of the RLE for nonhealing wound. Patient denies any pain to his right lower extremity.No strikethrough oted to bandage and patient is able to feel my fingertips to the distal aspect of his right foot and he is able to move his right foot with CFT instantaneous to the digits of the right foot. His pain is well controlled and no fevers or shortness of breath are noted. Patient can be discharged home. He is to leave splint and bandages intact until his follow up with our office Patient is to begin taking his Xarelto and has pain medication in his chart for discharge His IV antibiotics at home have been Vanco and Cefepime- infectious disease has switched his cefepime to Meropenem- Mr. Kearney will continue with Vanco and Cefepime until Meropenem is received at home He is to continue to be NWB to the right lower extremity at this time Please contact me with any questions!
[2024-12-14 10:52] VITALS: BP 126/80; PULSE 56; TEMP 97.6; O2SAT 96
== END 2024-12-14 10:08 | disposition home health service (06) ==
LOC: MED/SURG
PROVIDERS: ADMIT Obstetrics & Gynecology Obstetrics; ATTEND Obstetrics & Gynecology Obstetrics
DX: T81.30XA Disruption of wound, unspecified, initial encounter; I10 Essential (primary) hypertension; E11.42 Type 2 diabetes mellitus with diabetic polyneuropathy; G89.18 Other acute postprocedural pain; M86.171 Other acute osteomyelitis, right ankle and foot; E11.65 Type 2 diabetes mellitus with hyperglycemia; L97.315 Non-pressure chronic ulcer of right ankle with muscle involvement without evidence of necrosis